=== PATIENT | male | born 1995 | race Caucasian/White ===

== ENCOUNTER 2018-06-04 19:30 | Emergency (ER) | payer OTHER ==
--- NOTE | 2018-06-04 19:41 | PDOC ---
Rapid Medical Evaluation Chief Complaint: Ear Problem Time Seen by Provider: 06/04/18 19:38 Medical Evaluation: Allergies Allergy/AdvReac Type Severity Reaction Status Date / Time No Known Allergies Allergy Verified 06/06/12 14:14 06/04/18 19:39 The patient presents with a chief complaint of: earring stuck in ear since this afternoon I have performed a brief in-person evaluation of this patient; Pertinent physical exam findings: VSS, noted erythema and edema rt tragus, unable to visualize earring I have ordered the following: none The patient will proceed to the ED for further evaluation. Discharge Disposition - Diagnosis Ear pain, right - Referrals - Patient Instructions - Post Discharge Activity
[2018-06-04 19:42] VITALS: BP 108/59; PULSE 60; TEMP 97.5; BMI 19.0
--- NOTE | 2018-06-04 19:59 | PDOC ---
History of Present Illness - General Chief Complaint: Ear Problem Stated Complaint: EAR PAIN Time Seen by Provider: 06/04/18 19:38 History Source: Patient Exam Limitations: No Limitations - History of Present Illness Initial Comments: 06/04/18 19:46 23 y/o male presents to the ED with earring stuck in skin this afternoon. pt states mild swelling to ear since yesterday. Pt denies med hx, MRSA hx, or fever. Timing/Duration: 4-6 hours Severity: mild Associated Symptoms: reports: denies symptoms Past History - Travel Traveled outside of the country in the last 30 days: No Close contact w/someone who was outside of country & ill: No - Past Medical History Allergies/Adverse Reactions: Allergies Allergy/AdvReac Type Severity Reaction Status Date / Time No Known Allergies Allergy Verified 06/04/18 19:41 Home Medications: Ambulatory Orders Metronidazole [Flagyl] 500 mg PO BID #14 tablet 06/06/12 No Home Medications 0 dose .ROUTE UTDICT 06/06/12 Asthma: Yes COPD: No - Suicide/Smoking/Psychosocial Hx Smoking Status: Yes Smoking History: Never smoked Have you smoked in the past 12 months: No Number of Cigarettes Smoked Daily: 0 Information on smoking cessation initiated: No Hx Alcohol Use: No Drug/Substance Use Hx: No Patient Lives Alone: No Lives with/in: parents Review of Systems - Review of Systems Able to Perform ROS?: No Is the patient limited Lebanese proficient: No Constitutional: No: Symptoms Reported HEENTM: No: Symptoms Reported Integumentary: Yes: Erythema Neurological: No: Symptoms reported *Physical Exam - Vital Signs Last Vital Signs Temp Pulse Resp BP Pulse Ox 97.5 F L 60 18 108/59 L 100 06/04/18 19:40 06/04/18 19:40 06/04/18 19:40 06/04/18 19:40 06/04/18 19:40 - Physical Exam General Appearance: Yes: Nourished, Appropriately Dressed. No: Apparent Distress HEENT: positive: TMs Normal, Other (noted embedded earring in rt tragus) Neck: positive: Supple Integumentary: positive: Other Medical Decision Making - Medical Decision Making 06/04/18 19:50 CC: earring embedded in skin since this afternoon Exam: noted diffuse edema and erythema to rt tragus Plan: utilizing forceps and hemostat I was able to remove the earring in 1 piece after removing backing. Due to edema and purulent drainage noted from opening, pt will be prescribed keflex *DC/Admit/Observation/Transfer Diagnosis at time of Disposition: Ear pain, right - Discharge Dispostion Disposition: HOME Condition at time of disposition: Improved - Referrals - Patient Instructions Printed Discharge Instructions: DI for Removal of Foreign Body From Skin Additional Instructions: take antibiotics as prescribed. Keep area clean and dry. Return to the ED if symptoms worsen. - Post Discharge Activity
== END 2018-06-04 20:00 | disposition home or self-care (01) ==
LOC: JERFT 19:30
PROC: 09C13ZZ Extirpation of Matter from Left External Ear, Percutaneous Approach (ICD-10-PCS; principal; 2018-06-04)
DX: S00.451A Superficial foreign body of right ear, initial encounter (principal); L08.9 Local infection of the skin and subcutaneous tissue, unspecified; W45.8XXA Other foreign body or object entering through skin, initial encounter; Y93.89 Activity, other specified; Y92.89 Other specified places as the place of occurrence of the external cause; Y99.8 Other external cause status
CPT/HCPCS: 10120-25; 99281-25

== ENCOUNTER 2018-12-23 23:48 | Emergency (ER) | payer OTHER ==
[2018-12-24 00:38] VITALS: BMI 22.4
[2018-12-24] MEDS ORDERED: IBUPROFEN 600 MG TABLET (FP) PO ONE ×2 (01:13→01:43)
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
--- NOTE | 2018-12-24 01:15 | PDOC ---
*Physical Exam - Vital Signs Last Vital Signs Temp Pulse Resp BP Pulse Ox 98.4 F 72 18 134/80 99 12/23/18 23:50 12/23/18 23:50 12/23/18 23:50 12/23/18 23:50 12/23/18 23:50 Medical Decision Making - Medical Decision Making 12/24/18 01:15 Patient seen by the advanced practice provider under my direct supervision. Ancillary testing reviewed as necessary. I agree with plan as outlined by the advanced practice provider. Discharge - Discharge Information Problems reviewed: Yes Clinical Impression/Diagnosis: Left forearm pain Condition: Fair Disposition: HOME - Follow up/Referral Referrals: Fabiana Armenta MD [Primary Care Provider] - Lionel Tamez DO [Staff Physician] - Call tomorrow - Patient Discharge Instructions Patient Printed Discharge Instructions: Forearm Muscle Strain Additional Instructions: take ibuprofen every 6 hours as needed for pain apply ice to the area follow up with orthopedics if symptoms persist - Post Discharge Activity Work/Back to School Note: Back to Work
[2018-12-24] MEDS ORDERED: IBUPROFEN 400 MG TABLET (FP) PO ONE (01:51)
[2018-12-24 02:32] VITALS: BP 116/69; PULSE 98; TEMP 98
== END 2018-12-24 02:33 | disposition home or self-care (01) ==
LOC: JER 23:48
DX: S56.812A Strain of other muscles, fascia and tendons at forearm level, left arm, initial encounter (principal); V49.49XA Driver injured in collision with other motor vehicles in traffic accident, initial encounter; Y92.488 Other paved roadways as the place of occurrence of the external cause; Y93.89 Activity, other specified; Y99.8 Other external cause status; J45.909 Unspecified asthma, uncomplicated
CPT/HCPCS: 73090-TC-LT-FY; 73110-TC-LT-FY; 99282-25

== ENCOUNTER 2019-01-16 00:21 | Emergency (ER) | payer OTHER ==
[2019-01-16 00:42] VITALS: BP 130/78; PULSE 75; TEMP 98.5; BMI 21.1
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
[2019-01-16] MEDS ORDERED: KETOROLAC TROMETHAMINE 60 MG/2 ML VIAL IM ONE (00:46)
[2019-01-16] MEDS ORDERED: KETOROLAC TROMETHAMINE 60 MG/2 ML VIAL ONE (00:59)
== END 2019-01-16 01:06 | disposition home or self-care (01) ==
LOC: JER 00:21
PROC: 3E0233Z Introduction of Anti-inflammatory into Muscle, Percutaneous Approach (ICD-10-PCS; principal; 2019-01-16)
DX: M62.830 Muscle spasm of back (principal); V47.5XXA Car driver injured in collision with fixed or stationary object in traffic accident, initial encounter; Y92.488 Other paved roadways as the place of occurrence of the external cause; Y93.89 Activity, other specified; Y99.8 Other external cause status
CPT/HCPCS: 99282-25

== ENCOUNTER 2023-03-17 13:10 | Emergency (ER) | payer OTHER ==
[2023-03-17 13:15] VITALS: BP 125/77; PULSE 71; RESP 18; TEMP 98.3; BMI 22.3
[2023-03-17] MEDS ORDERED: LORazepam 2 MG TABLET PO ONE (14:35)
[2023-03-17] MEDS ORDERED: ALBUTEROL SO4 2.5/IPRATROPIUM 0.5 INH SOL 3 ML VIAL.NEB. NEB ONE ×2 (14:46→14:52)
[2023-03-17] MEDS ORDERED: LORazepam 1 MG TABLET ONE (14:53)
[2023-03-17 15:25] LABS: BASO % 0.1 % (0-2.0); EOS % 0.9 % (0-4.5); HEMATOCRIT 47.4 % (35.4-49); HEMOGLOBIN 15.7 GM/dL (11.7-16.9); LYMPH % 21.5 % (8-40); MCH 28.7 pg (25.7-33.7); MCHC 33.2 g/dl (32.0-35.9); MEAN CELL VOLUME 86.4 fl (80-96); MEAN PLT VOLUME 9.9 fl (7.5-11.1); MONO % 10.3 % (3.8-10.2); NEUT % 67.2 % (42.8-82.8); PLATELET COUNT 186 10^3/uL (134-434); RBC 5.48 M/mm3 (4.00-5.60); RDW 12.8 % (11.9-15.9); WHITE BLOOD COUNT 7.6 K/mm3 (4.0-10.0)
[2023-03-17 15:46] LABS: POTASSIUM 4.5 mmol/L (3.5-5.1)
[2023-03-17 15:48] LABS: ALBUMIN 4.1 g/dl (3.4-5.0); BLOOD UREA NITROGEN 19.9 mg/dL (7-18); CALCIUM 9.4 mg/dL (8.5-10.1); MAGNESIUM 2.1 mg/dL (1.8-2.4)
[2023-03-17 15:53] LABS: BILIRUBIN,TOTAL 0.7 mg/dL (0.2-1); TOT PROT 7.5 g/dl (6.4-8.2)
== END 2023-03-17 16:45 | disposition home or self-care (01) ==
LOC: JER 13:10
PROC: 3E0F7GC Introduction of Other Therapeutic Substance into Respiratory Tract, Via Natural or Artificial Opening (ICD-10-PCS; principal; 2023-03-17)
DX: R06.02 Shortness of breath (principal); R42 Dizziness and giddiness; Z20.822 Contact with and (suspected) exposure to COVID-19
CPT/HCPCS: 0241U-QW; 36415; 71046-TC-FY; 80053; 83735; 84484; 85025; 93005; 93010; 99285-25

== ENCOUNTER 2023-11-30 14:09 | Emergency (ER) | payer OTHER ==
[2023-11-30 14:16] VITALS: BP 114/76; PULSE 66; RESP 18; TEMP 97.9; BMI 21.7
[2023-11-30] MEDS ORDERED: KETOROLAC TROMETHAMINE 30 MG/1 ML VIAL ONE (15:01)
[2023-11-30] MEDS: KETOROLAC TROMETHAMINE 30 MG/1 ML VIAL IM ONE (15:07)
== END 2023-11-30 15:16 | disposition home or self-care (01) ==
LOC: FER 14:09
PROC: 3E0233Z Introduction of Anti-inflammatory into Muscle, Percutaneous Approach (ICD-10-PCS; principal; 2023-11-30)
DX: S13.4XXA Sprain of ligaments of cervical spine, initial encounter (principal); M54.6 Pain in thoracic spine; R42 Dizziness and giddiness; V49.50XA Passenger injured in collision with unspecified motor vehicles in traffic accident, initial encounter; Y92.410 Unspecified street and highway as the place of occurrence of the external cause
CPT/HCPCS: 99284-25

== ENCOUNTER 2023-12-03 20:23 | Emergency (ER) | payer OTHER ==
[2023-12-03 20:33] VITALS: BP 127/86; PULSE 65; RESP 18; TEMP 99.1; BMI 22.3
[2023-12-03] MEDS ORDERED: KETOROLAC TROMETHAMINE 30 MG/1 ML VIAL ONE (23:11)
[2023-12-03] MEDS ORDERED: diazePAM 5 MG TABLET ONE (23:11)
[2023-12-03] MEDS: diazePAM 5 MG TABLET PO ONE (23:14)
[2023-12-03] MEDS: KETOROLAC TROMETHAMINE 30 MG/1 ML VIAL IM ONE (23:15)
== END 2023-12-03 23:25 | disposition home or self-care (01) ==
LOC: JERFT 20:23
PROC: 3E0133Z Introduction of Anti-inflammatory into Subcutaneous Tissue, Percutaneous Approach (ICD-10-PCS; principal; 2023-12-03)
DX: S13.4XXA Sprain of ligaments of cervical spine, initial encounter (principal); V89.2XXA Person injured in unspecified motor-vehicle accident, traffic, initial encounter; Y92.410 Unspecified street and highway as the place of occurrence of the external cause
CPT/HCPCS: 99284-25